=== PATIENT | male | born 1995 ===

== ENCOUNTER → 2018-03-30 | Outpatient (CLI) | payer SELFPAY | LOC: ZCOL.LAB 16:22 | DX: J02.9 Acute pharyngitis, unspecified (principal) ==

== ENCOUNTER → 2018-04-06 | Outpatient (CLI) | payer SELFPAY ==
[2018-04-07 02:31] LABS: RPR (VDRL) Negative (Negative)
== END ==
LOC: ZCOL.LAB 16:17
PROVIDERS: Family Medicine
DX: Z30.2 Encounter for sterilization (principal)